=== PATIENT | female | born 1995 | race Caucasian/White ===

== ENCOUNTER 2025-05-09 00:06 | Emergency (ER) | payer OTHER, SELFPAY ==
[2025-05-09 00:19] VITALS: BP 156/87; PULSE 119; RESP 18; TEMP 36.5; O2SAT 97; BMI 25.1
[2025-05-09 01:14] LABS: MANUAL DIFF FLAG NO
--- NOTE | 2025-05-09 01:14 | MHC.EDTECH ---
Patient refused being tested for strep
[2025-05-09 01:15] LABS: Hematocrit 49.9 % (37.0-47.0); Hemoglobin 17.0 g/dl (12.0-16.0); Imm Gran Abs Auto 0.09 X10*3/uL (0.00-0.03); Imm Gran Pct Auto 0.4 % (0.0-0.4); Lymphocytes Absolute Auto 2.4 X10*3/uL (1.2-4.9); Mean Corpuscular HGB Conc 34.1 g/dl (31.0-35.0); Mean Corpuscular Hemoglobin 28.8 pg (27.0-33.0); Mean Corpuscular Volume 84.4 fL (80.0-98.0); NRBC Abs Auto 0.000 X10*3/uL (0.0-0.012); NRBC Pct Auto 0.0 /100WBC (0.0-0.2); Platelet Count 355 X10*3/uL (160-400); Red Blood Count 5.91 X10*6/uL (4.20-5.50); White Blood Count 22.0 X10*3/uL (4.8-10.8)
[2025-05-09 01:32] LABS: Alanine Aminotransferase 11 U/L (0-31); Albumin Level 5.7 g/dL (3.5-5.0); Alkaline Phosphatase 56 U/L (39-117); Aspartate Amino Transferase 24 U/L (5-31); Blood Urea Nitrogen 15 mg/dL (9-16); Calcium 10.8 mg/dL (8.4-10.2); Creatinine Clr Calc Pharmacy 127.2; Estimated Glomerular Filt Rate > 60; Lipase 15 U/L (8-78); Total Protein 8.8 g/dL (6.5-8.0)
[2025-05-09 01:40] LABS: IDNOW Serial# 58CA691E
[2025-05-09 01:41] LABS: COVID-19 Test Negative (Negative)
[2025-05-09 01:42] LABS: Anion Gap 26 (12-20); Carbon Dioxide 23 mmol/L (22-29); Chloride 94 mmol/L (96-108); Potassium 3.5 mmol/L (3.3-5.1); Sodium 139 mmol/L (135-145)
--- NOTE | 2025-05-09 02:31 | PC.NURSE ---
pt declined strep swab.
--- OUTSIDE RECORDS SUMMARY | 2025-05-09 02:31 | XMS_ITS | Encounter Summary ---
Author Organization [facility] Address [address] [place] [address] [place] [address] Phone Care Team Providers Care Molding Room Supervisor Name Role Phone Debby Penalozazabeth Kala NOLAND Primary Care Provider +1- [phone] Encounter Details Date Type Department Care Team (Late st Contact Info) Description 04/22/[address] [facility] Lab Main [address] [place] [address] Aileen Menard, LUYC [address] [place] [address] Generalized anxiety disorder (Primary Dx) Social History Tobacco Use Types Packs/Day Years Used Date Smoking Tobacco: Never Smokeless Tobacco: Never Alcohol Use Standard Drinks/Week Comments Yes 0 (1 standard drink = 0.6 oz pur e alcohol) soc Education Answer Date Recorded Are you interested in more education? Not on kumar e 09/29/2022 Are you concerned about learning? Not on file 09/29/2022 No 09/29/2022 No 09/29/2022 Digital Access Answer Date Recorded No 10/20/2022 No 10/20/2022 Reliable internet access at home? Not on file 10/20/2022 Device with a working camera? Not on file Comments No Sex and Gender Information Value Date Recorded Sex Assigned at Female 11/29/2023 10:34 PM EDT Legal Sex Female 6:06 PM EST Gender Identity Female 11/29/2023 10:34 PM EDT Sexual Orientation Straight 11/29/2023 10 :34 PM EDT Occupation Industry Job Start Date Job End Date student/working Not on file Not on file Not on file documented as of this encounter Plan of Treatment Not on file documented as of this encounter Procedures Procedure Name Priority Date/Time Associated Diagnosis Comments ECG 12-LEAD Routine 04/22/2023 3:24 PM EST Generalized anxiety disorder documented in this encounter Results * ECG 12-LEAD (04/22/2023 3:24 PM EST) Ventricular Rate EKG/MIN 80 BPM [facility] Atrial Rate 80 BPM [facility] OH Interval 148 ms [facility] QRS Duration 104 ms [facility] QT Interval 374 ms [facility] QTC Interval 431 ms [facility] P [place] 37 degrees [facility] R Wave [place] 23 degrees [facility] T Wave [place] 31 degrees [facility] 04/22/2023 3:24 PM EST 04/22/2023 6:01 PM EST Narrative [facility] - 04/22/2023 6:01 PM EST Normal sinus rhythm Incomplete right bundle branch block Borderline ECG When compared with ECG of 29-JUN-2014 19:39, T wave amplitude has decreased in Anterior leads us Aileen Menard SASH ASSEMBLER ECG ORDERABLES Final Result [facility] documented in this encounter Visit Diagnoses Diagnosis Generalized anxiety disorder- Primary documented in this encounter Additional Health Concerns Infection Onset Date Last Indicated Resolved Time COVID-19 05/17/2024 05/17/2024 06/07/2024 1:23 AM EST documented as of this encounter Care Teams Molding Room Supervisor Relationship Specialty Start Date End Date Apryl Penaloza DO [address] [facility] [place] [address] PCP - General Internal Medicine 11/18/18 documented as of this encounter Additional Source Comments The information contained in this document represents components of the legal health record. It is not the complete legal health record.[facility]
--- OUTSIDE RECORDS SUMMARY | 2025-05-09 02:31 | XMS_ITS | Clinical Summary ---
Author Organization [facility] Address [address] [place] [address] Phone Care Team Providers Care Operations Examiner Name Role Phone Apryl Penaloza DO Primary Care Provider +1- [phone] Allergies No known active allergies Medications buPROPion (WELLBUTRIN XL) 300 MG ER 24 hr tablet 1 Active citalopram (CELEXA) 10 MG tablet Take 10 mg by mouth every evening. 3 Active albuterol 90 mcg/actuation inhaler INHALE 1-2 PUFFS EVERY 4 HOURS NEEDED FOR WHEEZING OR SHORTNESS OF BREATH. 3 Active hydrOXYzine HCL (ATARAX) 10 MG tablet TAKE 1 ORAL TABLET UP TO THREE TIMES DAILY NEEDED FOR ANXIETY 2 Active norethindrone-e thinyl estradiol (06/14, ,) 1 mg-20 mcg (21)/75 mg (7) per tablet 06/14 () 1 mg-20 mcg (21)/75 mg (7) tablet Take one tablet by mouth daily 84 tablet 4 3 Active loratadine (CLARITIN) 10 mg tablet Take 1 tablet (10 mg total) by mouth daily. 20 tablet 4 Active Active Problems No known active problems Encounters Date Type Department Care Team Description 02/28/2025 1:00 PM EDT Telemedicine [facility] [address] [place] [address] Estephanie Villela, JOSE Acute upper respiratory infection, unspecified (Primary Dx) from Last 3 Months Immunizations Immunization Administration Dates Next Due COVID-19 (Pre-03/17) Moderna Vaccine, mRNA, PF 07/10/2021,07/04/2020,06/01/2020 INFLUENZA, SPLIT VIRUS, TRIVALENT PF 03/24/2025, 02/25/2024 Influenza Quadrivalent Prese rvative Free IM 02/22/2023,03/29/2022,03/19/2021,2018 Family History Medical History Relation Comments Hyperlipidemia Father Hypertension Father Hypertension Mother Hyperlipidemia Paternal Grandfather Relation Status Comments Father Mother Paternal Grandfather Social History Tobacco Use Types Packs/Day Years Used Date Smoking Tobacco: Never Smokeless Tobacco: Never Tobacco Cessation:Counseling Given: Not Answered Alcohol Use Standard Drinks/Week Comments Yes 0 [...] with a working camera? Not on file Intimate Partner Violence Answer Date R ecorded Are you denied basic needs [facility] as food, clothing, or medical care? No 11/29/2023 In the past 12 months have y ou been in a relationship with a person who hurts, threatens, or tries to control you? No 11/29/2023 Are you denied basic needs [facility] as food, clothing, or medical care? No 11/29/2023 In the past 12 months have y ou been in a relationship with a person who hurts, threatens, or tries to control you? No 11/29/2023 Comments No Sex and Gender Information Value Date Recorded Sex Assigned at Female 11/29/2023 10:34 PM EDT Legal Sex Female 6:06 PM EST Gender Identity Female 11/29/2023 10:34 PM EDT Sexual Orientation Straight 11/29/2023 10 :34 PM EDT Occupation Industry Job Start Date Job End Date student/working Not on file Not on file Not on file Last Filed Vital Signs Vital Sign Reading Time Taken Comments Blood Pressure 139/74 11/30/2023 1:00 AM EDT Pulse 84 11/30/2023 1:00 AM EDT Temperature 35.7 C (96.3 F) 11/29/2023 9:55 PM EDT Respiratory Rate 20 11/29/2023 9:55 PM EDT Oxygen Saturation 96% 11/30/2023 1:00 AM EDT Inhaled Oxygen Concentration - - Weight 103 kg (227 lb) 06/26/2022 2:40 PM EST Height 170.2 cm (5' 7 ) 06/26/2022 2:40 PM EST Body Mass Index 35.55 06/26/2022 2:40 PM EST Plan of Treatment Health Maintenance Due Date Last Done Comments Adult Td,Tdap Booster 1997 DEPRESSION SCREENING 2009 HEPATITIS C SCREENING 2015 HIV ONE-TIME SCREENING (18-65 YEARS) 2015 COVID-19 VACCINE (2024- season) 2025 07/10/2021, 07/04/2020, 06/01/2020 PAP SMEAR 06/26/2025 06/26/2022, 05/2022, 11/19/2018, Additional history exists SMOKING STATUS SCREENING (Once After 26 Yrs) Completed 02/28/2025 INFLUENZA VACCINE Completed 03/24/2025, , 02/22/2023, Additional history exists HEPATITIS A VACCINES Aged Out No long er eligible based on patient's age to complete this topic HIB VACCINES Aged Out No longer eligi ble based on patient's age to complete this topic MENINGOCOCCAL VACCINES (ACWY) Aged Out No longer eligible based on patient's age to complete this topic MENINGOCOCCAL VACCINES (B) Aged Out N o longer eligible based on patient's age to complete this topic PNEUMOCOCCAL VACCINES (0-49 years) Aged Out No longer eligible based on patient's age to complete this topic Medical Devices Not on file Procedures Procedure Name Priority Date/Time Associated Diagnosis Comments PAP TEST Routine 06/26/2022 9:54 AM EST from Last 3 Months or Most Recently Relevant to Health Maintenance Results * Pap Test (06/26/2022 9:54 AM EST) 06/26/2022 9:54 AM EST 06/27/2022 9:54 AM EST Narrative SEE NARRATIVE - 07/01/2022 10:15 [place] [address] Screen Tender: Olivier Gabriel MD MECHANICAL ENGINEERING TECHNICIAN Cytology Report FINAL DIAGNOSIS A. CERVICAL, LIQUID BASED SPECIMEN: SPECIMEN ADEQUACY: Satisfactory for evaluation; transformation zone present. INTERPRETATION: NEGATIVE FOR INTRAEPITHELIAL LESION OR MALIGNANCY. This specimen was analyzed by the automated ThinPrep Imaging System ([employer] and the selected green were reviewed by a television picture tube rebuilder. Electronically Signed Out By: SWEETIE Jaeger(ASCP) The Pap test is a screening test primarily for squamous cancers and precursors and has associated false-negative and false-positive results. New technologies such as liquid-based preparations may decrease but will not eliminate all false-negative results. Regular sampling and follow-up of unexplained clinical signs and symptoms are recommended to minimize false negative results. CLINICAL HISTORY Date of Last Menstrual Period: 06/05/2022 Contraceptive History: BCPs Other Clinical Conditions: Routine: Z12.4,Z11.3 SPECIMEN SOURCE A: CERVICAL, LIQUID BASED SPECIMEN GROSS DESCRIPTION One ThinPrep vial received from which a single Pap-stained slide was prepared. Processing and cytotech screening of this specimen performed at [facility], [address] [place] [address]. Patient Name: DAILY ORTEGA : 1995 (Age: 27) Sex: F [facility]: [facility] Date of Collection: 06/26/2022 Date of Reported: 07/01/2022 10:15 Ordered By: Sirisha Vaughn MD Copy To: us Sirisha Vaughn MD CYTOLOGY ORDERABLES Sasha l Result SEE NARRATIVE from Last 3 Months or Most Recently Relevant to Health Maintenance Care Teams Operations Examiner Relationship Specialty Start Date End Date Apryl Penaloza DO [address] [facility] [address] PCP - General Internal Medicine 11/18/18 Additional Source Comments The information contained in this document represents components of the legal health record. It is not the complete legal health record.[facility]
--- OUTSIDE RECORDS SUMMARY | 2025-05-09 02:31 | XMS_ITS | Encounter Summary ---
Author Organization [facility] Address [address] [facility] [address] [place] [address] Phone Care Team Providers Care Merchandise Presentation Manager Name Role Phone SrinivasaThao praterbeceline Armendariz Primary Care Provider +1- [phone] Encounter Details Date Type Department Care Team (Late st Contact Info) Description 09/19/2023 Transcribe [facility] Specimen Processing [address] [place] [address] Samara Social History Tobacco Use Types Packs/Day Years [...] on file documented as of this encounter Visit Diagnoses Not on filedocumented in this encounter Additional Health Concerns Infection Onset Date Last Indicated Resolved Time COVID-19 05/17/2024 05/17/2024 06/07/2024 1:23 AM EST documented as of this encounter Care Teams Merchandise Presentation Manager Relationship Specialty Start Date End Date Apryl Penaloza DO [address] [place] [address] PCP - General Internal Medicine 11/18/18 documented as of this encounter Additional Source Comments The information contained in this document represents components of the legal health record. It is not the complete legal health record.[facility]
--- OUTSIDE RECORDS SUMMARY | 2025-05-09 02:31 | XMS_ITS | Encounter Summary ---
Author Organization [facility] Address [address] [place] [address] [place] [address] Phone Care Team Providers Care Blacking Wheel Tender Name Role Phone Tremaine Apryl Kala NOLAND Primary Care Provider +1- [phone] Encounter Details Date Type Department Care Team (Late st Contact Info) Description 11/24/2019 Transcribe Orders [facility] Specimen Processing [address] [place] [address] Carrie [email or web address] Social History Tobacco Use Types Packs/Day Years Used Date Smoking Tobacco: Never Smokeless Tobacco: Never Alcohol Use Standard Drinks/Week Comments Yes 0 (1 standard drink = 0.6 oz pur e alcohol) soc Comments No Sex and Gender Information Value [...] Infection Onset Date Last Indicated Resolved Time CoV-Risk 07/25/2020 07/25/2020 08/04/2020 1:23 AM EST CoV-Presumed 05/29/2021 05/29/2021 06/19/2021 1:23 AM EST COVID-19 05/17/2024 05/17/202406/07/2024 1:23 AM EST documented as of this encounter Care Teams Blacking Wheel Tender Relationship Specialty Start Date End Date Apryl Penaloza DO [address] [facility] [place] [address] PCP - General Internal Medicine 11/18/18 documented as of this encounter Additional Source Comments The information contained in this document represents components of the legal health record. It is not the complete legal health record.[facility]
--- OUTSIDE RECORDS SUMMARY | 2025-05-09 02:31 | XMS_ITS | Encounter Summary ---
Author Organization [facility] Address [address] [facility] [address] [place] [address] Phone Care Team Providers Care Manufacturing Cost Estimator Name Role Phone Apryl Penaloza DO Primary Care Provider +1- [phone] Encounter Details Date Type Department Care Team (Late st Contact Info) Description 11/01/2022 Transcribe [facility] Specimen Processing [address] [place] [address] [address] [place] [address] Social History Tobacco Use Types Packs/Day Years [...] documented as of this encounter Care Teams Manufacturing Cost Estimator Relationship Specialty Start Date End Date Apryl Penaloza DO [address] [facility] [place] [address] PCP - General Internal Medicine 11/18/18 documented as of this encounter Additional Source Comments The information contained in this document represents components of the legal health record. It is not the complete legal health record.[facility]
--- OUTSIDE RECORDS SUMMARY | 2025-05-09 02:31 | XMS_ITS | Encounter Summary ---
Author Organization [facility] Address [address] [facility] [address] [place] [address] Phone Care Team Providers Care Air Director Name Role Phone Apryl Penaloza DO Primary Care Provider +1- [phone] Encounter Details Date Type Department Care Team (Late st Contact Info) Description 04/23/[address] [facility] Specimen Processing [address] [place] [address] Kusum George [address] [place] [address] [email or web address] Social History Tobacco Use Types Packs/Day Years [...] documented as of this encounter Care Teams Air Director Relationship Specialty Start Date End Date Apryl Penaloza DO [address] [facility] [place] [address] PCP - General Internal Medicine 11/18/18 documented as of this encounter Additional Source Comments The information contained in this document represents components of the legal health record. It is not the complete legal health record.[facility]
--- OUTSIDE RECORDS SUMMARY | 2025-05-09 02:31 | XMS_ITS | Encounter Summary ---
Author Organization [facility] Address [address] [facility] [address] [place] [address] Phone Care Team Providers Care Disk Operator Name Role Phone SrinivasaThao praterbeceline Armendariz Primary Care Provider +1- [phone] Encounter Details Date Type Department Care Team (Late st Contact Info) Description 11/24/2019 Transcribe Orders [facility] Specimen Processing [address] [place] [address] Zully Social History Tobacco Use Types Packs/Day Years [...] 05/29/2021 06/19/2021 1:23 AM EST COVID-19 05/17/2024 05/17/2024 06/07/2024 1:23 AM EST documented as of this encounter Care Teams Disk Operator Relationship Specialty Start Date End Date Apryl Penaloza DO [address] [facility] [place] [address] PCP - General Internal Medicine 11/18/18 documented as of this encounter Additional Source Comments The information contained in this document represents components of the legal health record. It is not the complete legal health record.[facility]
--- NOTE | 2025-05-09 02:55 | PC.NURSE ---
pt reports cough N/V for days. pain in abdomen and heart burn. Pt emesis x2 while in stretcher witnessed by this RN, provider aware, awaiting new orders.
[2025-05-09 03:03] LABS: IDNOW Serial# 152EDE1D; Influenza B2 Negative (Negative)
[2025-05-09] MEDS: Lactated Ringers 1,000 ML 999 ML IV ×2 (03:11→04:19)
--- NOTE | 2025-05-09 03:23 | PC.NURSE ---
pt medicated per MAR.
[2025-05-09] MEDS: Magnesium Hydrox/Alum Hydrox 30 ML ORAL.SUSP PO (04:19)
[2025-05-09] MEDS: Lidocaine HCl Viscous 2 % 15 ML SOLUTION MUCOUS MEM (04:19)
--- NOTE | 2025-05-09 05:52 | ED_ITS ---
HPI - Nausea/Vomiting/Diarrhea General Chief complaint: Nausea/Vomiting/Diarrhea Stated complaint: n/v Time Seen by Provider: 05/09/25 02:28 Source: patient Mode of arrival: ambulatory Limitations: no limitations History of Present Illness ED Provider: Dr. Evelin Lu HPI Narrative: 30-year-old female who presents with 24 hours of severe nausea, multiple episodes of vomiting (?too many to count?), and marked heartburn with associated throat irritation. She is unable to tolerate any oral intake (solids or liquids) during this period. She reports a sensation of ?hotness? and shortness of breath on exertion but denies chest pain, fever, cough, or recent upper respiratory illness. She was evaluated twice at an outside ED a few weeks ago ([place]). At that time a CT scan was performed and reportedly ?clear.? She received IV fluids, anti- emetics, Pepcid, and a GI cocktail containing lidocaine, which provided transient throat relief. She was advised she was dehydrated at the outside ED. Prior labs reportedly showed elevated WBC and RBC counts; patient was told this might relate to infection or dehydration. Related Data Previous Rx's ?Medication ?Instructions ?Recorded dicyclomine 20 mg tablet 20 mg PO TID #10 tabs omeprazole 20 mg capsule,delayed 20 mg PO DAILY #30 ca ps 05/09/25 release ondansetron 4 mg disintegrating 4 mg PO Q8H PRN nausea and 05/09/25 tablet vomiting #10 tabs Allergies Allergy/AdvReac Type Severity Reaction Status Date / Time No Known Allergies Allergy Verified 05/09/25 00:22 Review of Systems 2 Review of Systems: as per HPI, full review of systems performed and negative but for the above mentioned pertinent positives and negatives. [facility] Social History Social History Advance Directives: No Advance Directives Information Provided: No Do you have a plan to hurt others: No Plan Patient : No Physical Exam 2 Exam: Exam: GENERAL: Ill-Appearing, appears uncomfortable. SKIN: Normal skin color for ethnicity, warm, dry, no rashes noted. HEENT:? Normocephalic, atraumatic, no stridor, dry mucous membranes, dentition intact, EOMI. NECK: Soft, supple, full ROM, midline structures nontender, no step-offs, no deformities, no lymphadenopathy. CHEST: Heart regular tachycardia, no murmurs, symmetric chest rise and fall. PULMONARY: Clear to auscultation bilaterally, diminished at the bases, no labored breathing, no wheezes/rhales/rhonchi. ABDOMINAL: Soft, nondistended, nontender, positive bowel sounds in all quadrants. : Deferred. MUSCULOSKELETAL: Normal tone, full range of motion, no deformities, no peripheral edema. NEURO: Alert and oriented x3, CN II through XII intact, equal strength and sensation bilateral upper and lower extremities, no focal neurologic deficits.? PSYCHIATRIC: Flat affect, fluid speech, good eye contact and appropriate demeanor. Vital Signs: Vital Signs: Last Vital Signs Temp 98.0 F 05/09/25 06:39 Pulse 108 H 05/09/25 06:39 Resp 18 05/09/25 06:39 BP 133/68 05/09/25 06:39 Pulse Ox 94 05/09/25 06:39 O2 Del Method Room Air 05/09/25 06:39 BMI result Body Mass Index 25.1 Medications Administered Discontinued Medications Generic Name Dose Route Start Last Admin Trade Name Freq PRN Reason Stop Dose Admin Acetaminophen 650 mg 05/09/25 05:55 05/09/25 06:02 Acetaminophen 325 Mg Tablet PO 05/09/25 05:56 650 mg ONCE ONE Administration Al Hydroxide/Mg Hydroxide 30 ml 05/09/25 04:00 05/09/25 04:19 Magnesium Hydrox/Alum Hydrox 30 Ml Oral.Susp PO 05/09/25 04:01 30 ml ONCE ONE Administration Diphenhydramine HCl 50 mg 05/09/25 04:00 05/09/25 04:19 Diphenhydramine Hcl 50 Mg/Ml Vial IVPUSH 05/09/25 04:01 50 mg ONCE ONE Administration Famotidine 20 mg 05/09/25 03:16 05/09/25 03:19 Famotidine/Pf 20 Mg/2 Ml Vial IVPUSH 05/09/25 03:17 20 mg ONCE ONE Administration Lactated Ringer's 1,000 mls @ 999 mls/hr 05/09/25 02:50 05/09/25 03:45 Lr IV 05/09/25 03:50 Infused .Q1H1M ONE Infusion Lactated Ringer's 1,000 mls @ 999 mls/hr 05/09/25 04:00 05/09/25 05:38 Lr IV 05/09/25 05:00 Infused .Q1H1M ONE Infusion Ketorolac Tromethamine 15 mg 05/09/25 02:50 05/09/25 03:11 Ketorolac Tromethamine 15 Mg/Ml Vial IVPUSH 05/09/25 02:51 15 mg ONCE ONE Administration Lidocaine HCl 15 ml 05/09/25 04:00 05/09/25 04:19 Lidocaine Hcl Viscous 2 % 15 Ml Solution MUCOUS MEM 05/09/25 04:01 15 ml ONCE ONE Administration Metoclopramide HCl 10 mg 05/09/25 04:00 05/09/25 04:19 Metoclopramide Hcl 10 Mg/2 Ml Vial IVPUSH 05/09/25 04:01 10 mg ONCE ONE Administration Ondansetron HCl 4 mg 05/09/25 02:50 05/09/25 03:10 Ondansetron Hcl 4 Mg/2 Ml Vial IVPUSH 05/09/25 02:51 4 mg ONCE ONE Administration Medical Decision Making Medical Decision Making MDM Narrative: 30-year-old female with acute gastro-intestinal symptoms most consistent with dehydration-related nausea/vomiting. Differential diagnosis includes surgical emergency such as obstruction, enteritis, hyperglycemia, acidosis, food or drug ingestion, pancreatitis, CVA, allergic reaction such as anaphylaxis, cannabis hyperemesis syndrome or cyclic vomiting syndrome, among many others.? Patient is not showing signs of acute dehydration or hemodynamic instability.? They are not having associated abdominal pain. ? Broad-based work-up was initiated based on above history and physical exam. Problem #1: Acute nausea, vomiting, and dehydration Assessment: 24 h intractable vomiting, unable to tolerate PO, tachycardia on arrival, likely volume depleted. Plan: - Administer 1?2 L IV normal saline. - Continue anti-emetics ? trial of Reglan (metoclopramide) after incomplete relief with initial agent. - Monitor symptoms and re-assess ability to tolerate oral intake. Problem #2: Heartburn / throat irritation likely GERD or esophagitis Assessment: Burning throat/heartburn, improved previously with Pepcid and GI cocktail. Plan: - Administer GI cocktail after anti-emetic to coat esophagus and relieve irritation. Problem #3: Possible cannabinoid hyperemesis syndrome Assessment: Regular marijuana use with episodes of nausea/vomiting; discussed association with high-THC strains. Plan: - Patient counselled to discontinue all marijuana/THC use to assess for symptomatic improvement. - Education provided regarding paradoxical vomiting with high-THC products. Follow-up: Reassess in ED after IV fluids and medications; discharge planning dependent on ability to tolerate PO and symptomatic improvement. Differential Diagnosis Differential Diagnoses: The differential diagnosis associated with the presentation includes (as above) Admission/Observation Consideration of admission/observation: Escalation of care including admission/observation considered Lab Data MDM Lab Attestation statement: I reviewed the patient's lab results. 05/09/25 01:06 05/09/25 01:06 Labs: Lab Results 05/09/25 05/09/25 Range/Units 01:06 02:38 WBC 22.0 H (4.8-10.8) X10*3/uL RBC 5.91 H (4.20-5.50) X10*6/uL Hgb 17.0 H (12.0-16.0) g/dl Hct 49.9 H (37.0-47.0) % MCV 84.4 (80.0-98.0) fL MCH 28.8 (27.0-33.0) pg MCHC 34.1 (31.0-35.0) g/dl RDW 13.5 (11.0-16.0) % Plt Count 355 (160-400) X10*3/uL MPV 9.3 L (9.4-12.3) fL Immature Gran % (Auto) 0.4 (0.0-0.4) % Neut % (Auto) 82.5 H (45-73) % Lymph % (Auto) 10.9 L (20-40) % [place] % (Auto) 5.9 (2-11) % Eos % (Auto) 0.1 (0-4) % Baso % (Auto) 0.2 (0-2) % Lymph # (Auto) 2.4 (1.2-4.9) X10*3/uL [place] # (Auto) 1.3 H (0.1-1.2) X10*3/uL Eos # (Auto) 0.0 (0.0-0.4) X10*3/uL Baso # (Auto) 0.0 (0.0-0.2) X10*3/uL Abs Immat Gran (auto) 0.09 H (0.00-0.03) X10*3/uL Absolute Neuts (auto) 18.2 H (2.0-8.3) x10*3/uL Absolute Nucleated RBC 0.000 (0.0-0.012) X10*3/uL Nucleated RBC % (auto) 0.0 (0.0-0.2) /100WBC Sodium 139 (135-145) mmol/L Potassium 3.5 (3.3-5.1) mmol/L Chloride 94 L (96-108) mmol/L Carbon Dioxide 23 (22-29) mmol/L Anion Gap 26 H (12-20) BUN 15 (9-16) mg/dL Creatinine 0.64 (0.5-1.4) mg/dL Estim Creat Clear Calc 127.2 Estimated GFR > 60 Random Glucose 117 H (60-115) mg/dL Calcium 10.8 H (8.4-10.2) mg/dL Total Bilirubin 1.0 (0.0-1.0) mg/dL AST 24 (5-31) U/L ALT 11 (0-31) U/L Alkaline Phosphatase 56 (39-117) U/L Total Protein 8.8 H (6.5-8.0) g/dL Albumin 5.7 H (3.5-5.0) g/dL Lipase 15 (8-78) U/L Beta HCG, Quant < 2 mIU/mL COVID-19 (FAIZA) Negative (Negative) COVID-19 Clin Com See Note Influenza Type A (EVA) Cancelled Negative Influenza Type B (EVA) Cancelled Negative Influenza A & B Note Cancelled See Note Independent Historian Clinical information obtained from an independent historian. History obtained from or confirmed by: Spouse Prescription Management I considered prescription management with: Other (antiemetic) Chronic Conditions Patient?s care impacted by: Other (CHS) Social Determinants Patient?s care significantly limited by Social Determinants of Health including: Other Social Determinant of Health Discharge Plan Discharge Clinical Impression: Cyclical vomiting Patient Disposition: Home, Self-Care Instructions: Acute Nausea and Vomiting (ED) Additional Instructions: Your vomiting and abdominal pain may be related to a stomach virus (the stomach flu). Your lab work is reassuring, though you do have a slight elevation in your white blood cell count. The treatment for this is supportive care. Use dicyclomine for abdominal cramping. Use Zofran for nausea as needed. Try to drink as much fluid as possible over the next several days to stay well hydrated. Return to the emergency department sooner if you develop any new or worsening symptoms including: Worsening abdominal pain or vomiting despite medication, fevers greater than 100?, bloody stool or vomit, any new symptom that concerns you. Call 911 with any medical emergency. Prescriptions: New dicyclomine 20 mg tablet 20 mg PO TID Qty: 10 0RF omeprazole 20 mg capsule,delayed release(DR/EC) 20 mg PO DAILY Qty: 30 0RF ondansetron 4 mg tablet,disintegrating 4 mg PO Q8H PRN (Reason: nausea and vomiting) Qty: 10 0RF Interventions: ED Discharge Assessment Last Done: 05/09/25 06:39 Discharge Date/Time: 05/09/25 06:40 Print Language: Mosotho
[2025-05-09 05:57] VITALS: BP 124/85; PULSE 101; RESP 18; TEMP 37.5; O2SAT 97
[2025-05-09 06:32] VITALS: BP 133/68; PULSE 108; RESP 18; TEMP 36.7; O2SAT 94
[2025-05-09 06:39] VITALS: BP 133/68; PULSE 108; RESP 18; TEMP 36.7; O2SAT 94
== END 2025-05-09 06:40 | disposition home or self-care (01) ==
PROVIDERS: Emergency Provider Emergency Medicine
DX: R11.15 Cyclical vomiting syndrome unrelated to migraine (principal); Z03.818 Encounter for observation for suspected exposure to other biological agents ruled out; R11.0 Nausea
CPT/HCPCS: 80053; 83690; 84702; 85025; 87502; 87635; 96361; 96374; 96375; 99284; J1200; J1308; J1885; J2405; J2765; J7120